=== PATIENT | female | born 1975 | race Caucasian/White ===

== ENCOUNTER 2021-01-04 19:10 | Observation (INO) ==
[2021-01-05] MEDS ORDERED: Ondansetron 4 MG/2 ML VIAL IVP PRN (05:05)
[2021-01-05] MEDS ORDERED: Naloxone 0.4 MG/ML INJ IVP PRN (05:05)
[2021-01-05 05:46] LABS: Basophils # 0.1 K/mcL (0.0-0.2); Basophils % 0.6 %; Eosinophils # 0.4 K/mcL (0.0-0.6); Eosinophils % 4.3 %; Hemoglobin 11.9 g/dL (11.5-15.4); Immature Granulocytes % 0.3 % (0-4); Lymphocytes # 2.8 K/mcL (0.6-4.6); Lymphocytes % 30.3 %; Mean Corpuscular HGB Conc 32.2 g/dL (31.6-35.5); Mean Corpuscular Hemoglobin 29.2 pg (28.0-33.3); Mean Corpuscular Volume 90.9 fL (83.0-100.0); Mean Platelet Volume 9.8 fL (9.4-12.4); Monocytes # 0.6 K/mcL (0.0-1.3); Monocytes % 6.2 %; Neutrophils # 5.4 K/mcL (1.6-8.9); Platelet Count 349 K/mcL (140-400); Red Blood Count 4.07 M/mcL (3.82-4.97); Red Cell Distribution Width 13.6 % (11.5-14.5); Segmented Neutrophils % 58.3 %; White Blood Count 9.3 K/mcL (4.3-11.1)
[2021-01-05 05:51] LABS: INR 1.2; Prothrombin Time 13.5 Seconds (9.4-12.1)
[2021-01-05 05:57] LABS: Alanine Aminotransferase 29 Units/L (7-52); Albumin 3.8 g/dL (3.5-5.7); Albumin/Globulin Ratio 1.2 (1.1-2.2); Alkaline Phosphatase 52 Units/L (34-104); Aspartate Amino Transferase 26 Units/L (13-39); BUN/Creatinine Ratio 16 (6-26); Bilirubin,Indirect 0.5 mg/dL (0.0-1.0); Bilirubin,Total 0.5 mg/dL (0.3-1.0); Blood Urea Nitrogen 12 mg/dL (6-20); Calcium 9.7 mg/dL (8.6-10.3); Carbon Dioxide 24 mEq/L (23-29); Chloride 103 mEq/L (98-107); Chol/HDL Ratio 6.8 (0-4.9); Cholesterol 169 mg/dL (< 200); Globulin 3.1 g/dL (2.4-3.5); Glucose 220 mg/dL (70-105); HDL Cholesterol 25 mg/dL (40-59); LDL Cholesterol,Calculated 99 mg/dL (< 100); Lipase 80 Units/L (11-82); Magnesium 1.7 mg/dL (1.6-2.6); Osmolality,Calculated 291 (280-300); Potassium 3.7 mEq/L (3.5-5.1); Sodium 137 mEq/L (136-145); Total Protein 6.9 g/dL (6.4-8.9); Triglycerides 227 mg/dL (< 150); eGFR For African Americans > 60 (> 60); eGFR For Non-African Americans > 60 (> 60)
[2021-01-05] MEDS ORDERED: D5% in Water 1,000 ML IVC PRN (06:15)
[2021-01-05] MEDS ORDERED: *HR* Dextrose 50 % in Water (Vial) 50 ML VIAL IVP PRN (06:15)
[2021-01-05] MEDS ORDERED: Dextrose Gel 15 GM/37.5 ML TUBE PO PRN ×2 (06:15)
[2021-01-05] MEDS: Ringers Solution, Lactated 1,000 ML IVC SCH ×2 (06:22→14:44)
[2021-01-05 06:42] LABS: Bilirubin,Urine Negative (Negative); Blood,Urine Negative (Negative); Clarity,Urine Clear (Clear); Color,Urine Yellow (Yellow); Glucose,Urine (UA) Normal (Normal); Ketones,Urine Negative (Negative); Leukocyte Esterase,Urine Moderate (Negative); Mucus,Urine Few per lpf (None-Few); Nitrite,Urine Negative (Negative); PH,Urine 5.5 pH Units (5.0-8.0); Protein,Urine Trace mg/dL (Neg-Trace); Specific Gravity,Urine > 1.030 (1.010-1.025); Squamous Epithelial Cell,Urine Few per hpf (None-Few); Urobilinogen,Urine Normal (Normal)
[2021-01-05] MEDS ORDERED: Ringers Solution, Lactated 1,000 ML IVC SCH (09:30)
[2021-01-05] MEDS: Insulin LISPRO 300 UNITS/3 ML VIAL SUBQ SCH ×3 (11:58→20:03)
[2021-01-05] MEDS ORDERED: Insulin LISPRO 300 UNITS/3 ML VIAL SUBQ SCH (12:00)
[2021-01-05] MEDS: cefTRIAXone 1,000 MG in Water for inj. (sterile) 10 ML IVP SCH (14:38)
[2021-01-05] MEDS: Acetaminophen 325 MG TABLET PO PRN (14:38)
[2021-01-05] MEDS: Gabapentin 300 MG CAPSULE PO SCH (20:03)
[2021-01-06] MEDS: Levothyroxine 25 MCG TABLET PO SCH (05:20)
[2021-01-06 06:32] LABS: Hematocrit 39.8 % (35.3-44.9); Hemoglobin 12.9 g/dL (11.5-15.4); Mean Corpuscular HGB Conc 32.4 g/dL (31.6-35.5); Mean Corpuscular Hemoglobin 29.8 pg (28.0-33.3); Mean Corpuscular Volume 91.9 fL (83.0-100.0); Mean Platelet Volume 9.9 fL (9.4-12.4); Platelet Count 320 K/mcL (140-400); Red Blood Count 4.33 M/mcL (3.82-4.97); Red Cell Distribution Width 13.3 % (11.5-14.5); White Blood Count 6.5 K/mcL (4.3-11.1)
[2021-01-06] MEDS: Famotidine 20 MG TABLET PO SCH (08:38)
[2021-01-06] MEDS: Gabapentin 300 MG CAPSULE PO SCH ×2 (08:41→20:12)
[2021-01-06] MEDS: Metoprolol XL (24 HR) Succ 25 MG TAB.ER.24H PO SCH (08:41)
[2021-01-06] MEDS: Letrozole 2.5 MG TABLET PO SCH (08:42)
[2021-01-06] MEDS: cefTRIAXone 1,000 MG in Water for inj. (sterile) 10 ML IVP SCH (08:42)
[2021-01-06] MEDS: Insulin LISPRO 300 UNITS/3 ML VIAL SUBQ SCH ×4 (08:43→20:13)
[2021-01-07 05:01] LABS: Hematocrit 39.3 % (35.3-44.9); Hemoglobin 12.8 g/dL (11.5-15.4); Mean Corpuscular HGB Conc 32.6 g/dL (31.6-35.5); Mean Corpuscular Hemoglobin 29.4 pg (28.0-33.3); Mean Corpuscular Volume 90.3 fL (83.0-100.0); Mean Platelet Volume 9.9 fL (9.4-12.4); Platelet Count 322 K/mcL (140-400); Red Blood Count 4.35 M/mcL (3.82-4.97); Red Cell Distribution Width 13.4 % (11.5-14.5); White Blood Count 7.4 K/mcL (4.3-11.1)
[2021-01-07 05:18] LABS: Alanine Aminotransferase 30 Units/L (7-52); Albumin 3.9 g/dL (3.5-5.7); Albumin/Globulin Ratio 1.2 (1.1-2.2); Alkaline Phosphatase 53 Units/L (34-104); Aspartate Amino Transferase 24 Units/L (13-39); BUN/Creatinine Ratio 10 (6-26); Bilirubin,Total 0.4 mg/dL (0.3-1.0); Blood Urea Nitrogen 7 mg/dL (6-20); Calcium 9.6 mg/dL (8.6-10.3); Carbon Dioxide 25 mEq/L (23-29); Chloride 100 mEq/L (98-107); Globulin 3.3 g/dL (2.4-3.5); Glucose 195 mg/dL (70-105); Lipase 38 Units/L (11-82); Osmolality,Calculated 285 (280-300); Potassium 3.7 mEq/L (3.5-5.1); Sodium 136 mEq/L (136-145); Total Protein 7.2 g/dL (6.4-8.9); eGFR For African Americans > 60 (> 60); eGFR For Non-African Americans > 60 (> 60)
[2021-01-07] MEDS: Levothyroxine 25 MCG TABLET PO SCH (05:18)
[2021-01-07] MEDS: Famotidine 20 MG TABLET PO SCH (08:36)
[2021-01-07] MEDS: Gabapentin 300 MG CAPSULE PO SCH ×2 (08:36→20:56)
[2021-01-07] MEDS: Letrozole 2.5 MG TABLET PO SCH (08:36)
[2021-01-07] MEDS: Insulin LISPRO 300 UNITS/3 ML VIAL SUBQ SCH ×2 (08:37→12:07)
[2021-01-07] MEDS: cefTRIAXone 1,000 MG in Water for inj. (sterile) 10 ML IVP SCH (08:37)
[2021-01-07] MEDS: Metoprolol XL (24 HR) Succ 25 MG TAB.ER.24H PO SCH (08:37)
[2021-01-07] MEDS ORDERED: Insulin LISPRO 300 UNITS/3 ML VIAL SUBQ SCH ×2 (12:00→21:00)
[2021-01-07] MEDS ORDERED: Ondansetron 4 MG/2 ML VIAL IVP PRN (12:01)
[2021-01-07] MEDS: 0.9 % Sodium Chloride 1,000 ML IVC SCH ×2 (12:06→21:22)
[2021-01-07] MEDS: Acetaminophen 325 MG TABLET PO PRN (21:22)
[2021-01-08 05:04] LABS: Hematocrit 38.3 % (35.3-44.9); Hemoglobin 12.7 g/dL (11.5-15.4); Mean Corpuscular HGB Conc 33.2 g/dL (31.6-35.5); Mean Corpuscular Volume 90.5 fL (83.0-100.0); Mean Platelet Volume 10.2 fL (9.4-12.4); Platelet Count 329 K/mcL (140-400); Red Blood Count 4.23 M/mcL (3.82-4.97); Red Cell Distribution Width 13.4 % (11.5-14.5)
[2021-01-08] MEDS: 0.9 % Sodium Chloride 1,000 ML IVC SCH (05:28)
[2021-01-08] MEDS: Levothyroxine 25 MCG TABLET PO SCH (05:28)
[2021-01-08 05:34] LABS: Alanine Aminotransferase 29 Units/L (7-52); Albumin 3.7 g/dL (3.5-5.7); Albumin/Globulin Ratio 1.2 (1.1-2.2); Alkaline Phosphatase 49 Units/L (34-104); Aspartate Amino Transferase 24 Units/L (13-39); BUN/Creatinine Ratio 10 (6-26); Bilirubin,Total 0.4 mg/dL (0.3-1.0); Blood Urea Nitrogen 7 mg/dL (6-20); Calcium 9.1 mg/dL (8.6-10.3); Carbon Dioxide 23 mEq/L (23-29); Chloride 105 mEq/L (98-107); Glucose 169 mg/dL (70-105); Osmolality,Calculated 288 (280-300); Potassium 3.9 mEq/L (3.5-5.1); Sodium 138 mEq/L (136-145); Total Protein 6.7 g/dL (6.4-8.9); eGFR For African Americans > 60 (> 60); eGFR For Non-African Americans > 60 (> 60)
[2021-01-08] MEDS: Letrozole 2.5 MG TABLET PO SCH (10:02)
[2021-01-08] MEDS: Metoprolol XL (24 HR) Succ 25 MG TAB.ER.24H PO SCH (10:02)
[2021-01-08] MEDS: Famotidine 20 MG TABLET PO SCH (10:02)
[2021-01-08] MEDS: Gabapentin 300 MG CAPSULE PO SCH (10:02)
[2021-01-08] MEDS: Insulin LISPRO 300 UNITS/3 ML VIAL SUBQ SCH ×2 (10:03→13:11)
[2021-01-08 11:19] VITALS: BP 149/79
== END 2021-01-08 14:01 | disposition home or self-care (01) ==
LOC: 3BNU → SUATTDRO 01-05 04:40
PROVIDERS: ADMIT General Practice; ATTEND Registered Nurse